=== PATIENT | female | born 1955 | race Caucasian/White ===

== ENCOUNTER → 2017-03-29 | Outpatient (CLI) | payer BC ==
[2014-03-19 14:42] VITALS: BP 131/53
[~2017-03-29] MED LIST: ARIP2TAB3 PO; BUPR150T6 PO; BUPR300T4 PO; FERR325T58 PO; FLUT1DIS3 IH; OMEP40CA5 PO; VALS160T3 PO; VENTOLIN HFA18 GM IH
--- NOTE | 2017-03-29 12:25 | RAD ---
DATE: 03/29/2017 EXAM: DIGITAL DIAGNOSTIC BILATERAL HISTORY: Follow-up probable benign finding COMPARISON: 12/05/2015, 11/27/2015 The breast parenchyma is heterogeneously dense, which could reduce sensitivity of mammography. Breast parenchyma level C. FINDINGS: No new or enlarging breast densities are seen. There are scattered benign type calcifications in both breasts. A cluster of calcifications in the posteromedial aspect of the left breast is unchanged and again likely related to an old fibroadenoma. No suspicious microcalcifications have developed. IMPRESSION: Stable mammograms without evidence of malignancy. Follow-up left mammography in 6 months and bilateral mammography at one year is suggested. BI-RADS CATEGORY: 3 PROBABLY BENIGN FINDING(S)-SHORT INTERVAL FOLLOW-UP SUGGESTED RECOMMENDED FOLLOW-UP: 6M 6 MONTH FOLLOW-UP PQRS compliance statement: Patient information was entered into a reminder system with a target due date for the next mammogram. Mammography is a sensitive method for finding small breast cancers, but it does not detect them all and is not a substitute for careful clinical examination. A negative mammogram does not negate a clinically suspicious finding and should not result in delay in biopsying a clinically suspicious abnormality. "Our facility is accredited by the [employer] Mammography [employer]."
== END | disposition home or self-care (01) ==
LOC: KCIC MAMMO 11:41
PROVIDERS: ATTEND Family Medicine
DX: R92.8 Other abnormal and inconclusive findings on diagnostic imaging of breast (principal)
CPT/HCPCS: G0204; 77066

== ENCOUNTER → 2017-09-28 | Outpatient (CLI) | payer BC | END | disposition home or self-care (01) | LOC: KCIC MAMMO 09:03 | DX: R92.1 Mammographic calcification found on diagnostic imaging of breast (principal); R92.2 Inconclusive mammogram | CPT/HCPCS: 77065 ==

== ENCOUNTER → 2018-04-24 | Outpatient (CLI) | payer BC ==
[2014-03-19 14:42] VITALS: BP 131/53
[~2018-04-24] MED LIST changes: +LIDOCAINE 2%/EPI 1:100,000 20 ML VIAL. IJ ONE; +LIDOCAINE WITH 8.4% SOD BICARB 3 ML DISP.SYRIN. INJ ONE
--- NOTE | 2018-04-25 17:09 | PATHOLOGY ---
[facility] Accession Number: [id number] . 01 Material submitted: . RIGHT BREAST TISSUE . 01 Clinical history: . Right breast calcifications . 02 Diagnosis: Breast tissue, right breast stereotactic biopsies: - Ancient fibroadenoma, with associated calcifications. - Stromal fibrosis. - Medial arterial calcification, focal. (JPM:bud; 04/25/2018) QMS/04/25/2018 . 02 Comment: There is no evidence of malignancy. . 02 Electronically signed: . Gerber Vides MD, Pathologist NPI- [id number] . 01 Gross description: . The specimen is received in formalin, labeled "Allison De La Rosa, right breast" and consists of an orange cassette containing multiple needle cores of yellow fibroadipose tissue measuring 2.6 x 1.5 x 0.5 cm which are transferred to cassette A1. Also received are a few additional needle cores of yellow fibroadipose tissue measuring 1.3 x 0.8 x 0.3 cm which are entirely submitted in A2. The specimen was obtained at 10:25 AM on 04/24/18 and placed in formalin at 10:34 AM. The cold ischemic time is 9 minutes and the total formalin fixation time is greater than 6 hours but less than 72 hours. (SDY; 04/24/2018) SYU/SYU . 02 Pathologist provided ICD-10: D24.1, N60.31 . 02 CPT . 377880 Specimen Comment: A courtesy copy of this report has been sent to Specimen Comment: [phone], , . Specimen Comment: Report sent to , and Specimen Comment: A duplicate report has been generated due to demographic updates. Performed at: 01 [facility] [address] [facility] [address], [place] [id number] MD Serg George MD Phone: [phone] Performed at: [address] [facility] [address] [place], [place] [id number] MD Gerber Vides MD Phone: [phone]
--- NOTE | 2018-04-26 08:23 | RAD ---
Stereotactic right breast biopsy, 04/24/2018: History: Suspicious microcalcifications Previous imaging demonstrated a cluster of suspicious microcalcifications at 12:00 location in the right breast. Under local anesthesia, aseptic conditions and stereotactic guidance the Hymite biopsy instrument was passed into this region via a superior approach. Multiple 9 gauge vacuum-assisted core samples were obtained. Specimen mammography demonstrated the targeted microcalcifications within the specimens. The biopsy instrument was removed and hemostasis obtained. Two-view postprocedural mammograms were then obtained on a separate digital mammographic unit to document position of the biopsy marker. The patient tolerated the procedure well and left the department in good condition. The subsequent pathology report indicated the presence of a fibroadenoma with calcifications. This is a concordant finding. BI-RADS 2-benign findings
== END | disposition home or self-care (01) ==
LOC: MAMMO 09:40
PROVIDERS: ATTEND Surgery
DX: D24.1 Benign neoplasm of right breast (principal); N60.31 Fibrosclerosis of right breast; I10 Essential (primary) hypertension; J44.9 Chronic obstructive pulmonary disease, unspecified; F32.9 Major depressive disorder, single episode, unspecified; F17.200 Nicotine dependence, unspecified, uncomplicated; Z79.899 Other long term (current) drug therapy; Z98.890 Other specified postprocedural states
CPT/HCPCS: 19081; 77022; 77065; 88305; C1713; J3490; 19085

== ENCOUNTER → 2020-11-27 | Outpatient (CLI) | payer BC ==
[2014-03-19 14:42] VITALS: BP 131/53
[~2020-11-27] MED LIST changes: +BUPR150T21 PO; -BUPR150T6 PO; -BUPR300T4 PO; +BUPR300T92 PO; -LIDOCAINE 2%/EPI 1:100,000 20 ML VIAL. IJ ONE; -LIDOCAINE WITH 8.4% SOD BICARB 3 ML DISP.SYRIN. INJ ONE; +OMEP40CA45 PO; -OMEP40CA5 PO
--- NOTE | 2020-11-27 14:31 | KCIC ---
Bilateral diagnostic digital mammograms with 3-D tomosynthesis: Reason for examination: Right breast lump. Comparison is made to previous studies dated back to 11/27/2015. Bilateral mammograms in CC and oblique projections were obtained with 2-D imaging and 3-D tomosynthes is imaging on a Siemens Inspiration unit and reviewed on the workstation. Interpretation was made wit h the benefit of CAD. The skin and nipples show no abnormalities. No abnormal axillary lymph nodes are seen. The breast par enchyma is heterogeneously dense. (Breast density: Category C.) There appears to be a spiculated mass at the 9:00 B position of the right breast which corresponds to the area of mammographic concern. Th ere continues to be some asymmetric parenchyma at the 12:00 position of the right breast posteriorly which is stable. There are no other dominant masses, suspicious calcifications or architectural disto rtion. Benign calcifications are present. Biopsy clip remains present on the right. Impression: Spiculated mass in the 9:00 B position of the right breast. Ultrasound to follow. Your patient's mammogram demonstrates that she has dense breast tissue (breast density category C or D), which could hide abnormalities, and if she has other risk factors for breast cancer that have bee n identified, she might benefit from supplemental screening tests that may be suggested by you as her ordering physician. Dense breast tissue, in and of itself, is a relatively common condition. Therefo re, this information is not provided to cause undue concern, but rather to raise your awareness and t o promote discussion with your patient regarding the presence of other risk factors, in addition to d ense breast tissue. Your patient's mammography results will be sent to her. BI-RAD Category 0: Incomplete. Needs additional imaging evaluation. Right breast ultrasound: Ultrasound examination of the right breast and axilla was performed. At the 9:00 position 7 cm from the nipple, there is a 17 x 17 x 7.2 mm spiculated mass which correspo nds to the area of clinical and mammographic concern. Appearance is highly suspicious of malignancy. Ultrasound-guided biopsy is recommended. No abnormal appearing lymph nodes are seen in the axilla. IMPRESSION: 1.7 cm spiculated mass at the 9:00 position 7 cm from the nipple in the right breast. This is highly suspicious of malignancy. Ultrasound-guided biopsy is recommended. BI-RADS Category 5: Highly suggestive of malignancy. I have discussed these findings with the patient and Dr. Taylor's medical services assistant was notified about these findings via voice message left on 11/27/2020 at 1426. "Our facility is accredited by the [employer] Mammography Program." This patient's information has been entered into a reminder system for the patient to be notified wit h the results of her examination and a target date for the next mammogram. Electronically signed by: Sirena Dominguez MD (11/27/2020 2:28 PM) [id number]
== END ==
LOC: KCIC MAMMO 12:47
PROVIDERS: ATTEND Family Medicine
DX: N63.13 Unspecified lump in the right breast, lower outer quadrant (principal)
CPT/HCPCS: 76641; 77066; G0279; 77062

== ENCOUNTER → 2020-12-25 | Outpatient (CLI) | payer BC ==
[2014-03-19 14:42] VITALS: BP 131/53
[~2020-12-25] MED LIST changes: +LIDOCAINE 1% Multi-Dose 20 ML VIAL. INJ ONE; -OMEP40CA45 PO; +OMEP40CA7 PO
--- NOTE | 2020-12-25 10:07 | RAD ---
EXAM: MG DIAGNOSTICUNILAT MAMMO, US BREAST BIOPSY 1ST LESION 12/25/2020 9:30 AM INDICATION: Right breast mass at 9:00, 7 cm from the nipple COMPARISON: Bilateral mammogram and right breast ultrasound 11/27/2020 TECHNIQUE/FINDINGS: The purpose of the procedure, risks and benefits were explained to the patient. Informed consent was obtained. A timeout was performed. The patient was placed supine on the ultrasound table. The mass at 9:00, 7 cm from the nipple in the rightbreast was identified and overlying skin marked, prepped, draped in standard sterile fashion. Sk in was anesthetized with 1 percent lidocaine. Next, 4 core biopsy samples were obtained with a coaxia l 14-gauge biopsy device. Samples were placed in formalin and sent to the laboratory for analysis. A biopsy marker was then placed at the biopsy site under ultrasound. [place] were removed, pressure hel d for hemostasis, and skin cleansed and covered with a dressing. The patient tolerated the procedure well and left in stable condition. Post clip mammogram demonstrates appropriate position of clip adjacent to the mass. The clip appears to be approximately 5 mm posterior and inferior to the mass on ML view. IMPRESSION: 1. Technically successful ultrasound-guided biopsy of breast mass. 2. The biopsy clip is approximately 5 mm posterior and inferior to the mass. Electronically signed by: Carey Fontana MD (12/25/2020 10:04 AM) [id number]
== END | disposition home or self-care (01) ==
LOC: US 08:16
PROVIDERS: ATTEND Surgery
DX: N63.13 Unspecified lump in the right breast, lower outer quadrant (principal); R92.8 Other abnormal and inconclusive findings on diagnostic imaging of breast; I10 Essential (primary) hypertension; J44.9 Chronic obstructive pulmonary disease, unspecified; F32.9 Major depressive disorder, single episode, unspecified; F17.210 Nicotine dependence, cigarettes, uncomplicated; Z79.899 Other long term (current) drug therapy; Z98.890 Other specified postprocedural states; Z72.89 Other problems related to lifestyle
CPT/HCPCS: 19083; 77065; A4648; J3490

== ENCOUNTER 2021-05-20 08:02 | Observation (INO) | payer BC ==
[2021-05-20] VITALS (10 sets, daily range): BP systolic 111–140; BP diastolic 58–82
[~2021-05-20] VITALS: Ht 162.6 cm; Wt 61.7 kg
[~2021-05-20 08:02] MED LIST changes: +HYDROmorphone 2 MG/ML VIAL IVP PRN; +IV RINGERS,LACTATED 1000ML 1,000 ML IV SCH; -LIDOCAINE 1% Multi-Dose 20 ML VIAL. INJ ONE; +MORPHINE SULFATE 2 MG/ML INJ. IVP PRN; +PROCHLORPERAZINE 10 MG/2 ML VIAL. IVP PRN; +ceFAZolin SODIUM IV Push 1 GM VIAL. IVP PRN; +fentaNYL PF VIAL 100 MCG/2 ML VIAL IVP PRN
[2021-05-20] MEDS ORDERED: LURA60TA PO (08:25)
[2021-05-20] MEDS ORDERED: PROPOFOL 10 MG/ML (20ML) VIAL. IV ONE (08:52)
[2021-05-20] MEDS ORDERED: DEXAMETHASONE SOD PHOS 20 MG/5 ML VIAL. ONE (08:52)
[2021-05-20] MEDS ORDERED: LIDOCAINE 2% PF 5 ML VIAL. ONE (08:52)
[2021-05-20] MEDS ORDERED: fentaNYL PF VIAL 100 MCG/2 ML VIAL ONE ×3 (08:52→14:02)
[2021-05-20] MEDS ORDERED: ONDANSETRON PF 4 MG/2 ML VIAL. ONE (08:52)
[2021-05-20] MEDS ORDERED: MIDAZOLAM HCL/PF 2 MG/2 ML VIAL. ONE (08:52)
[2021-05-20] MEDS ORDERED: ePHEDrine PF IN SALINE 50 MG/10 ML SYRINGE. IV ONE (09:36)
--- NOTE | 2021-05-20 10:32 | RAD ---
EXAM: Right breast lymphoscintigraphy. HISTORY: 66-year-old female with recently diagnosed breast cancer presents for lymphoscintigraphy jesus or to sentinel node biopsy. TECHNIQUE: The skin of the anterior breast was sterilely prepped. 1 mCi technetium 99m lymphoseek was injected intradermally in the 9:00 right periareolar distribution. No image was obtained. IMPRESSION: Right breast lymphoscintigraphy for sentinel node biopsy. Electronically signed by: Debbie Rosales MD (05/20/2021 10:29 AM) [id number]
[2021-05-20] MEDS ORDERED: ISOSULFAN BLUE 1% 50 MG/5 ML VIAL. SQ ONE (10:41)
[2021-05-20] MEDS ORDERED: BUPIVACAINE-EPI 0.5% 30 ML VIAL KIT. ONE (10:41)
[2021-05-20] MEDS ORDERED: LIDOCAINE 1%/EPI 1:100,000 20 ML VIAL. ONE (10:42)
--- NOTE | 2021-05-20 13:08 | RAD ---
EXAM: Right breast sonographic guided needle localization; right breast mammographic guided needle lo calization; right breast post localization mammogram; right breast specimen radiograph. HISTORY: 66-year-old female with a history of 2 sites of biopsy-proven malignancy presents for needle -wire localization prior to lumpectomy. The initial biopsy proven malignancy is located at the 9:00 p osition 7 cm from the nipple and is demarcated by an S-shaped clip. The second biopsy-proven malignan cy is located superior and superior to the initial site of biopsy and is demarcated by a small cylind rical clip. There is a coil Hydromark clip at the site of benign biopsy at the 10:00 position. There is also a biopsy clip within the superior breast at the site of prior remote benign biopsy performed 04/24/2018. COMPARISON: Mammogram an MRI dated 04/17/2021. Mammogram and sonogram dated 02/25/2021. TECHNIQUE AND FINDINGS: The procedure was explained to the patient and informed consent obtained. A t imeout was performed. Sonographic imaging of the right breast was performed and the biopsy-proven malignancy at the 9:00 po sition 7 cm from the nipple was identified. The skin overlying this location was sterilely prepped, d raped and infiltrated with 1 percent lidocaine. A needle hook-wire system was advanced slightly throu gh the lesion of concern and deployed. The wire was secured to the skin surface. The patient was then transferred to the mammography suite and the right was placed in lateral medial compression and second biopsy clip at the site of malignancy was localized with mammographic guidance . The skin overlying this region was sterilely prepped and infiltrated with 1% buffered Lidocaine. A needle hook-wire system was advanced to the lesion of interest with mammographic guidance. The wire w as deployed. The wire was secured at the skin entry site. Full-field craniocaudal and lateral medial views of the breast were then obtained and interpreted the separate workstation. The images demonstrate both wires adjacent to the biopsy clips at the sites of biopsy-proven malignancy. The patient tolerated the procedure without difficulty. There were no imme diate complications. A surgical specimen radiograph demonstrates inclusion of the biopsy clips and lesions of concern at t he sites of biopsy-proven malignancy. IMPRESSION: Successful wire localization of biopsy clips at sites of biopsy-proven malignancy within the right breast and inclusion of the biopsy clips and lesions of concern within the surgical specime n. Electronically signed by: Debbie Rosales MD (05/20/2021 1:06 PM) [id number]
--- NOTE | 2021-05-20 13:27 | PDOC4 ---
Operative Note Operative Note Operative Note: Preoperative Diagnosis: Right breast cancer Postoperative Diagnosis: Same Procedure: Right lumpectomy with needle localization, right axillary sentinel lymph node biopsy Surgeon: Mauro Rn First Assist: MARTINE Jerez, Parish Jorge MS Anesthesia: General EBL: 25 mL Specimen: Right axillary sentinel lymph nodes 1 through 5 to pathology, right lumpectomy short stitch superficial long stitch lateral to pathology; additional medial, superficial, inferior margins to pathology Drains: None Complications: None Indication: The patient is a 66-year-old female who was diagnosed with right breast cancer. She was found to have a tumor at the 9 o'clock position of the right breast with an additional smaller satellite lesion at the 10 o'clock position. She is requesting breast conservation. The plan is for a lumpectomy with needle localization of the 2 known areas of tumor. We also will incorporate a sentinel lymph node biopsy. The details and risks of surgery were discussed. The risks include bleeding, infection, pain, scar tissue, wound healing problems, seroma formation, potential need for additional surgery procedure depending on pathology results. She understands and would like to proceed. Description: The patient initially reported to radiology where she underwent wire localization of the two known sites of tumor. She also was injected with technetium sulfur colloid. She was then taken the operating room and placed supine in the operating table. General anesthesia was performed. The right arm was outstretched on an arm board. The right breast and axilla were prepped with ChloraPrep and draped in a standard surgical manner. Five mL of Lymphazurin were injected deep to the nipple areolar complex. Several minutes were allowed to elapse. An incision was made in the right axilla with a scalpel. Cautery dissection was carried down into the axillary contents. There were five separate areas of marked increased nuclear uptake corresponding to lymph nodes. Each node was sequentially identified and harvested. All of them were normal in size and showed no gross abnormalities. Frozen section of the five lymph nodes was negative for any metastasis. There was no palpable adenopathy. We then proceeded with the lumpectomy. An incision was made between the 9 and 10 o'clock position in the lateral aspect of the right breast. Cautery dissection was carried down into the breast parenchyma. A large lumpectomy specimen was t hen obtained by mobilizing the involved breast tissue at the 9 and 10:00 locations. Cautery was used to free the breast tissue circumferentially. The dissection was then carried all the way down to the pectoralis muscle. The wires provided guidance for the direction of lumpectomy. A short silk suture marked the superficial or anterior margin. A long silk suture marked the late ral margin. In a medial to lateral fashion the specimen was taken off the chest wall and sent to radiology. Specimen radiographs confirmed the presence of both wires and clips. We did elect to take additional shave margins from the medial and inferior locations. Also an additional superficial or anterior margin was taken which included the overlying anterior skin. They were all sent to pathology. Hemostasis was good. The subcutaneous tissue of both locations was closed with 3-0 Vicryl. Skin was approximated with 4-0 Monocryl. Sterile dressings were then applied. The patient tolerated the procedure well and was sent to the recovery room in stable condition. At the end of the case all counts were correct. ENID SIMPSON MD May 20, 2021 13:27
[2021-05-20] MEDS ORDERED: HYDROcodone/APAP 5/325MG 1 TAB TABLET PO PRN (13:30)
[2021-05-20] MEDS ORDERED: HYDROmorphone 2 MG/ML VIAL IV PRN (13:30)
[2021-05-20] MEDS ORDERED: NALOXONE 0.4 MG/ML VIAL. IV PRN (13:30)
[2021-05-20] MEDS ORDERED: IV NORMAL SALINE 1000ML BAG 1,000 ML IV SCH (13:30)
[2021-05-20] MEDS ORDERED: ONDANSETRON PF 4 MG/2 ML VIAL. IVP PRN (13:30)
[2021-05-20] MEDS ORDERED: IV 1/2 NORMAL SALINE 1,000 ML IV SCH (13:30)
[2021-05-20] MEDS ORDERED: 0.9 % SODIUM CHLORIDE 10 ML DISP.SYRIN. IV PRN (13:30)
[2021-05-20] MEDS: fentaNYL PF VIAL 100 MCG/2 ML VIAL IVP PRN ×2 (14:04→14:17)
--- NOTE | 2021-05-20 15:00 | NUR ---
received from recovery. she is rating her pain an "8". medicated. she has good radial pulses, good sensation and motion bilateral upper extremities.right lateral and r axilla dressing are clean dry and intact. answers questions; history completed.
--- NOTE | 2021-05-20 18:58 | NUR ---
transferred to [place] [id number] Addendum: 05/20/21 at 1901 by VICENTE GREENWOOD RN report given to Gloria
[2021-05-20] MEDS: HYDROcodone/APAP 5/325MG 1 TAB TABLET PO PRN (20:01)
[2021-05-21] MEDS: HYDROcodone/APAP 5/325MG 1 TAB TABLET PO PRN ×2 (01:36→08:23)
[2021-05-21 03:00] VITALS: BP 114/59
[2021-05-21 07:00] VITALS: BP 117/62
--- NOTE | 2021-05-21 09:09 | PDOC ---
SURGICAL PROGRESS NOTE DATE: 05/21/21 TIME: 09:08 Subjective doing well tolerating diet pain managed urinating Vital Signs Vital Signs Date Time Temp Pulse Resp B/P (MAP) Pulse Ox O2 Delivery O2 Flow Rate FiO2 05/21/21 08:23 Room Air 05/21/21 07:00 98.4 68 16 117/62 (80) 91 98.4 05/20/21 16:00 2.0 I&O Intake and Output 05/21/21 07:00 Intake Total 1700 ml Output Total 425 ml Balance 1275 ml Intake Oral 500 ml IV Total 1200 ml Output Urine Total 400 ml Estimated Blood Loss 25 ml # Voids 3 General: Alert, Oriented X3, Cooperative Skin: Other (dressing dry) Assessment/Plan home FU 1 week Justicifation of Admission Dx: Justifications for Admission: Justification of Admission Dx: Yes Comments: breast cancer DON PEGUERO SET RIDER May 21, 2021 09:09
[2021-05-21] MEDS ORDERED: HYDR-2761 PO (09:11)
--- NOTE | 2021-05-21 09:12 | DISCH ---
DISCHARGE INSTRUCTIONS Condition on Discharge Condition on Discharge: Stable Activity After Discharge Activity Instructions for Disc: Activity as tolerated Bathing Instructions: Shower-keep dressing dry Lifting Instructions after Dis: No heavy lifting Driving Instructions after Dis: Do not drive today Diet after Discharge Diet after Discharge: Regular Wound Incision Care Wound/Incision Care: Keep wound/cast CDI, Do not change dressing Contacting the after DC Call your doctor for: Concerns you may have Follow-Up Follow up with: Dr Wade, 1 week, call to schedule [phone] DON PEGUERO APRN May 21, 2021 09:12
--- NOTE | 2021-05-21 10:15 | NUR ---
Discharge instructions given and prescription sent via electronic to pharmacy. Answered questions and concerns. Both pt and daughter verbalized understanding. Pt discharge home.
--- NOTE | 2021-06-02 12:12 | PDOC3 ---
Discharge Summary Visit Information Date of Admission: May 20, 2021 Date of Discharge: May 21, 2021 Admitting Diagnosis: right breast cancer Final Diagnosis right breast cancer Brief Hospital Course Allergies Allergies Coded Allergies Type Severity Reaction Last Updated Verified No Known Drug Allergies 05/20/21 No Brief Hospital Course Ms. De La Rosa is a 66 old female who underwent Right lumpectomy with needle localization, right axillary sentinel lymph node biopsy. Postoperatively pain managed, ambulating, and ready for discharge home Discharge Information Condition at Discharge: Stable Follow Up: Weeks (2) Disposition/Orders: D/C to Home Scheduled Bupropion Hcl (Bupropion Xl) 150 Mg Tab.er.24h, 1 TAB PO BID for copd, #30 Ref 2 (Reported) Entered as Reported by: Debbie Renteria on 03/15/141143 Last Taken: Unknown Dose on 05/19/21 Last Action: Last Taken Edited on 05/20/21824 by Bob Oquendo Fluticasone/Salmeterol (Advair 250-50 Diskus) 1 Each Disk.w.dev, 1 INH IH BID, (Reported) Entered as Reported by: Debbie Renteria on 03/15/141143 Last Action: Reviewed on 05/19/21 1401 by JACQUELINE LYONS Lurasidone Hcl (Latuda) 60 Mg Tablet, 60 MG PO QHS for , (Reported) Entered as Reported by: Bob Oquendo on 05/20/21824 Last Taken: 60 on Unknown Date & Time Last Action: New Order on 05/20/21824 by Bob Oquendo Scheduled PRN Hydrocodone Bit/Acetaminophen (Hydrocodone-Apap 5-325 ) 1 Tab Tablet, 1 TAB PO PRN Q4HRS PRN for MILD PAIN 1-3, #15 Ref 0 Prescribed by: Don Barber on 05/21/21 0911 Justicifation of Admission Dx: Justifications for Admission: Justification of Admission Dx: Yes DON BARBER APN Jun 02, 2021 12:12
== END 2021-05-21 10:15 | disposition home or self-care (01) ==
LOC: SURG 08:02 → 4 SOUTHEST 13:27 → 4 NORTH 18:56
PROVIDERS: ADMIT Surgery; ATTEND Surgery
DX: C50.911 Malignant neoplasm of unspecified site of right female breast (principal)
CPT/HCPCS: 19281; 19285; 19301; 38525; 38792; 76098; 96374; A4209; A4364; A4930; A6254; A6258; A9520; C1819; G0378; G0379; J0690; J1100; J1170; J2250; J2405; J2704; J3010; Q9968; 88307; 88331; 88341; 88342; A4452; J3490

== ENCOUNTER → 2021-06-15 | Outpatient (CLI) | payer BC ==
[2021-05-21 07:00] VITALS: BP 117/62
[~2021-06-15] MED LIST changes: +HYDR-2761 PO; -HYDROmorphone 2 MG/ML VIAL IVP PRN; -IV RINGERS,LACTATED 1000ML 1,000 ML IV SCH; +LURA60TA PO; -MORPHINE SULFATE 2 MG/ML INJ. IVP PRN; -PROCHLORPERAZINE 10 MG/2 ML VIAL. IVP PRN; -ceFAZolin SODIUM IV Push 1 GM VIAL. IVP PRN; -fentaNYL PF VIAL 100 MCG/2 ML VIAL IVP PRN
--- NOTE | 2021-06-15 11:48 | RAD ---
AP and Lateral Views of the Chest 06/15/2021 11:01 AM Indication: Reason: DUCTAL CARCINOMA RT BREAST / Spl. Instructions: / History: Comparison: Chest radiograph January 09, 2060 Findings: No focal infiltrate is seen. No pneumothorax or effusion is seen. Heart size is normal. The re is interval near total loss of disc space involving 2 inferior thoracic vertebral bodies, which ap pear to be T10-T11. There is associated sclerosis the both vertebral body endplates. Impression: 1. No evidence of acute cardiopulmonary process 2. Interval development of total loss of disc space involving the inferior thoracic spine with associ ated sclerosis both in place. The etiology could be traumatic, infectious,, or pathologic/metastatic given history of malignancy. CT and/or MRI evaluation recommended. Electronically signed by: Ananda Da Silva MD (06/15/2021 11:45 AM) [id number]
== END ==
LOC: RAD 10:37
PROVIDERS: ATTEND Radiology Radiation Oncology
DX: C50.211 Malignant neoplasm of upper-inner quadrant of right female breast (principal); M51.34 Other intervertebral disc degeneration, thoracic region
CPT/HCPCS: 71046

== ENCOUNTER → 2021-07-14 | Outpatient (CLI) | payer BC ==
--- NOTE | 2021-07-14 14:24 | RAD ---
EXAM: Chest CT without intravenous contrast. HISTORY: Invasive ductal carcinoma of the right breast. TECHNIQUE: Computed tomographic images of the chest were obtained without contrast. Multiplanar refor matting was performed. *One or more of the following individualized dose reduction techniques were utilized for this examina tion: 1. Automated exposure control. 2. Adjustment of the mA and/or kV according to patient size. 3. Use of iterative reconstruction technique. COMPARISON: 05/20/2021. FINDINGS: There is a large fluid collection within the right breast centered at the 9:00 position manjula suring 9.5 cm in maximum dimension, likely due to a postoperative seroma in this patient with a histo ry of recent lumpectomy surgery. There is stranding within the right axilla likely due to recent lymp h node dissection. There is a biopsy clip within the medial right breast the site of benign pathology findings. The heart is normal in size. There is calcified atherosclerotic plaque involving the coronary arterie s. There is no lymphadenopathy. There is bilateral posterior dependent and basilar atelectasis. There is no suspicious pulmonary nodule. There is lingular atelectasis or scarring. There is a small bone island within the left first rib. There is callus formation surrounding a suspe cted healing anterior left third and fourth rib fractures. There is a suspected healed or nearly heal ed anterior left fifth rib fracture. There is a mild chronic compression deformity with large superio r endplate Schmorl's node at T12. There is a moderate hiatal hernia. IMPRESSION: 1. 9.5 cm fluid collection within the right breast likely due to a postoperative seroma given a histo ry of interval lumpectomy surgery. There is also stranding within the right axilla due to lymph node dissection. 2. Healing anterior third and fourth rib fractures and suspected healed or nearly healed anterior lef t fifth rib fracture. There is also a chronic fracture deformity of T12. Electronically signed by: Debbie Rosales MD (07/14/2021 2:22 PM) [id number]
== END ==
LOC: CT 13:00
PROVIDERS: ATTEND Radiology Radiation Oncology
DX: S22.42XD Multiple fractures of ribs, left side, subsequent encounter for fracture with routine healing (principal); I65.23 Occlusion and stenosis of bilateral carotid arteries; J98.11 Atelectasis; K44.9 Diaphragmatic hernia without obstruction or gangrene; M51.44 Schmorl's nodes, thoracic region; M43.8X4 Other specified deforming dorsopathies, thoracic region; X58.XXXD Exposure to other specified factors, subsequent encounter; Z85.3 Personal history of malignant neoplasm of breast
CPT/HCPCS: 76380

== ENCOUNTER → 2021-09-30 | Outpatient (CLI) | payer BC ==
--- NOTE | 2021-09-30 15:58 | KCIC ---
INDICATION: Screening for osteopenia/osteoporosis. Reason: LONGTERM INHIBITORS, IDC RT BREAST / Spl . Instructions: / History: . Postmenopausal evaluation. COMPARISON: None. TECHNIQUE: Bone densitometry was performed through the lumbar spine and proximal femur. IMPRESSION: Lumbar Spine: BMD: 1.17 T-Score: 1.2 Range: Normal Proximal Femur: BMD: 0.75 T-Score: -1.6 Range: Osteopenic World Health Organization Criteria for Bone Density: T-Score: > -1.0: Normal Range < -1.0 to -2.5: Osteopenic Range < -2.5: Osteoporotic Range Electronically signed by: Teodoro Cho MD (09/30/2021 3:56 PM) [id number]
== END ==
LOC: KCIC DEXA 13:15
PROVIDERS: ATTEND Internal Medicine Hematology & Oncology
DX: C50.211 Malignant neoplasm of upper-inner quadrant of right female breast (principal); M85.88 Other specified disorders of bone density and structure, other site; Z79.811 Long term (current) use of aromatase inhibitors; Z78.0 Asymptomatic menopausal state
CPT/HCPCS: 77080